=== PATIENT | male | born 1940 | race Two or more races ===

== ENCOUNTER 2021-06-11 13:46 | Inpatient (IN) | payer MEDICARE ==
[~2021-06-11] VITALS: Ht 167.6 cm; Wt 98.5 kg
[~2021-06-11 13:46] MED LIST: ASPI81TA87 PO; ATOR20TA65 PO; LEVE500T20 PO
[2021-06-11] MEDS ORDERED: IOHEXOL 350 MG/ML 150 ML VIAL ONE (13:58)
[2021-06-11] MEDS ORDERED: ALBU8HFA IH (14:22)
[2021-06-11] MEDS ORDERED: SPIR-37 PO (14:22)
[2021-06-11] MEDS ORDERED: DULO30CA89 PO (14:22)
[2021-06-11] MEDS ORDERED: CARV3.1231 PO (14:22)
[2021-06-11] MEDS ORDERED: LISI-892 PO (14:22)
[2021-06-11] MEDS ORDERED: BUME1TAB34 PO (14:22)
[2021-06-11] MEDS ORDERED: CLOP75TA60 PO (14:22)
[2021-06-11] MEDS ORDERED: LEVO25TA9 PO (14:22)
[2021-06-11] MEDS ORDERED: EMPA10TA PO (14:22)
[2021-06-11] MEDS ORDERED: TAMS-13 PO (14:22)
[2021-06-11 14:30] LABS: BASOPHILS % (AUTO) 0.2 % (0.0-2.0); EOSINOPHILS % (AUTO) 1.1 % (1.0-6.0); HEMOGLOBIN 12.3 g/dL (13.5-17.5); LYMPHOCYTES # (AUTO) 1.2 K/uL (1.0-4.8); LYMPHOCYTES % (AUTO) 25.8 % (22.0-44.0); MEAN CORPUSCULAR HGB CONC 35.3 G/dL (31.0-37.0); MEAN CORPUSCULAR VOLUME 91 fL (80-100); MONOCYTES # (AUTO) 0.6 K/uL (0.1-1.0); MONOCYTES % (AUTO) 11.8 % (2.0-9.0); NEUTROPHILS # (AUTO) 2.9 K/uL (1.8-7.7); NEUTROPHILS % (AUTO) 61.1 % (40.0-70.0); PLATELET COUNT (AUTO) 159 K/uL (150-450); RED BLOOD CELL COUNT(AUTO) 3.86 MIL/uL (4.50-5.90); RED CELL DISTRIBUTION WIDTH 13.7 % (11.5-14.5)
[2021-06-11 14:35] LABS: CALCIUM, TOTAL 9.1 mg/dL (8.8-10.5); CREATININE 1.42 mg/dL (0.60-1.30); POTASSIUM 4.3 mmol/L (3.5-5.1)
[2021-06-11 14:40] LABS: PROTHROMBIN TIME 11.1 SEC (9.4-11.6)
[2021-06-11 14:41] LABS: ALBUMIN 3.6 g/dL (3.4-5.0); BILIRUBIN,TOTAL 0.9 mg/dL (0.1-1.0)
[2021-06-11] MEDS ORDERED: DEXTROSE 50%-WATER 25 GM/50 ML SYRINGE IVP PRN (14:45)
[2021-06-11] MEDS ORDERED: INSULIN LISPRO 100 UNITS/ML SQ PRN (14:45)
[2021-06-11] MEDS ORDERED: ACETAMINOPHEN 325 MG TABLET PO PRN ×2 (14:45→15:45)
[2021-06-11] MEDS: ATORVASTATIN CALCIUM 40 MG TABLET PO SCH (15:07)
[2021-06-11] MEDS: HEPARIN SODIUM,PORCINE 5,000 UNITS/ML VIAL SQ SCH (15:08)
[2021-06-11] MEDS: ASPIRIN 81 MG CHEWABLE TABLET PO SCH (15:08)
[2021-06-11 15:17] LABS: THYROID STIMULATING HORMONE 1.99 uIU/mL (0.36-3.74)
[2021-06-11] MEDS ORDERED: ASPIRIN 81 MG CHEWABLE TABLET PO ONE (15:30)
[2021-06-11] MEDS ORDERED: ONDANSETRON HCL 4 MG/2 ML VIAL IVP PRN (15:45)
[2021-06-11] MEDS ORDERED: 0.9% SODIUM CHLORIDE 10 ML SYRINGE IVP PRN (15:45)
[2021-06-11 16:01] LABS: COVID AG,FIA SOURCE NASAL SWAB
[2021-06-11 18:26] VITALS: BP 124/59
[2021-06-11] MEDS: DOCUSATE SODIUM 100 MG CAPSULE PO SCH (21:30)
[2021-06-12] VITALS (7 sets, daily range): BP systolic 96–129; BP diastolic 52–63
[2021-06-12] MEDS: HEPARIN SODIUM,PORCINE 5,000 UNITS/ML VIAL SQ SCH ×3 (00:50→16:56)
[2021-06-12 05:21] LABS: GLUCOMETER DEV NAME(LOC) 5S.2B; GLUCOSE,POINT OF CARE 115 MG/DL (70-110)
[2021-06-12] MEDS: DOCUSATE SODIUM 100 MG CAPSULE PO SCH ×2 (09:25→20:32)
[2021-06-12] MEDS: CLOPIDOGREL BISULFATE 75 MG TABLET PO SCH (09:26)
[2021-06-12] MEDS: ASPIRIN 81 MG CHEWABLE TABLET PO SCH (09:26)
[2021-06-12] MEDS: ATORVASTATIN CALCIUM 40 MG TABLET PO SCH (09:26)
[2021-06-12] MEDS: FAMOTIDINE 20 MG TABLET PO SCH (09:26)
[2021-06-12 17:21] LABS: GLUCOMETER DEV NAME(LOC) 5S.2B; GLUCOSE,POINT OF CARE 97 MG/DL (70-110)
[2021-06-12 17:21] LABS: GLUCOMETER DEV NAME(LOC) 5S.2B; GLUCOSE,POINT OF CARE 130 MG/DL (70-110)
[2021-06-12 17:21] LABS: GLUCOMETER DEV NAME(LOC) 5S.2B; GLUCOSE,POINT OF CARE 97 MG/DL (70-110)
[2021-06-13] MEDS: HEPARIN SODIUM,PORCINE 5,000 UNITS/ML VIAL SQ SCH ×2 (00:04→08:23)
[2021-06-13 00:11] VITALS: BP 130/51
[2021-06-13 04:02] VITALS: BP 109/45
[2021-06-13 06:21] LABS: GLUCOMETER DEV NAME(LOC) 5N.3; GLUCOSE,POINT OF CARE 131 MG/DL (70-110)
[2021-06-13 06:21] LABS: GLUCOMETER DEV NAME(LOC) 5N.3; GLUCOSE,POINT OF CARE 94 MG/DL (70-110)
[2021-06-13 07:41] LABS: CALCIUM, TOTAL 8.8 mg/dL (8.8-10.5); CREATININE 1.3 mg/dL (0.60-1.30); POTASSIUM 3.9 mmol/L (3.5-5.1)
[2021-06-13 08:00] VITALS: BP 121/61
[2021-06-13] MEDS: DOCUSATE SODIUM 100 MG CAPSULE PO SCH (08:24)
[2021-06-13] MEDS: ASPIRIN 81 MG CHEWABLE TABLET PO SCH (08:24)
[2021-06-13] MEDS: ATORVASTATIN CALCIUM 40 MG TABLET PO SCH (08:24)
[2021-06-13] MEDS: FAMOTIDINE 20 MG TABLET PO SCH (08:24)
[2021-06-13] MEDS: CLOPIDOGREL BISULFATE 75 MG TABLET PO SCH (08:24)
[2021-06-13 09:32] LABS: GLUCOMETER DEV NAME(LOC) 5S.1B; GLUCOSE,POINT OF CARE 158 MG/DL (70-110)
== END 2021-06-13 11:55 | disposition home or self-care (01) | DRG 69 ==
LOC: EMS 13:47 → 5S 18:11
PROVIDERS: ADMIT Internal Medicine; ATTEND Internal Medicine
DX: G45.9 Transient cerebral ischemic attack, unspecified (principal); E87.1 Hypo-osmolality and hyponatremia; I50.22 Chronic systolic (congestive) heart failure; E11.9 Type 2 diabetes mellitus without complications; E66.01 Morbid (severe) obesity due to excess calories; E78.00 Pure hypercholesterolemia, unspecified; F01.50 Vascular dementia, unspecified severity, without behavioral disturbance, psychotic disturbance, mood disturbance, and anxiety; G40.909 Epilepsy, unspecified, not intractable, without status epilepticus; Z20.822 Contact with and (suspected) exposure to COVID-19; N28.9 Disorder of kidney and ureter, unspecified; I11.0 Hypertensive heart disease with heart failure; I25.10 Atherosclerotic heart disease of native coronary artery without angina pectoris; Z87.891 Personal history of nicotine dependence; Z86.73 Personal history of transient ischemic attack (TIA), and cerebral infarction without residual deficits; Z95.5 Presence of coronary angioplasty implant and graft; Z68.35 Body mass index [BMI] 35.0-35.9, adult; Z95.810 Presence of automatic (implantable) cardiac defibrillator
CPT/HCPCS: 70496; 70498; 71045; 80048; 80053; 82962; 84443; 84484; 85025; 85610; 85730; 92610; 93005; 97163; 97165; 97535; 99291; J1644; Q9967; 36415-L1; 36415-TC; 70450; 70450-TC

== ENCOUNTER 2023-05-31 15:53 | Emergency (ER) | payer MEDICARE ==
[~2023-05-31] VITALS: Ht 185.4 cm; Wt 110.0 kg
[~2023-05-31 15:53] MED LIST changes: +ALBU18HF12 IH; +BUME1TAB34 PO; +CARV3.1231 PO; +CLOP75TA60 PO; +DULO-114 PO; +EMPA10TA3 PO; +LEVO25TA9 PO; +LISI-892 PO; +SPIR-37 PO; +TAMS0.4C94 PO
[2023-05-31 16:15] VITALS: TEMP 97.8
[2023-05-31 17:49] LABS: APPEARANCE,URINE CLEAR (CLEAR); BILIRUBIN,URINE NEGATIVE (NEGATIVE); COLOR,URINE COLORLESS (YELLOW); GLUCOSE, URINE (UA) NEGATIVE (NEGATIVE); KETONES,URINE NEGATIVE (NEGATIVE); LEUKOCYTE ESTERASE ,URINE TRACE (NEGATIVE); NITRATE,URINE NEGATIVE (NEGATIVE); OCCULT BLOOD,URINE NEGATIVE (NEGATIVE); PH,URINE 5.5 (5.0-8.0); PROTEIN,URINE NEGATIVE (NEGATIVE); SPECIFIC GRAVITIY, URINE 1.007 (1.003-1.030); UROBILINOGEN,URINE <=1.0 mg/dL (<=1.0)
[2023-05-31 18:08] LABS: BACTERIA,URINE Rare /HPF (None Seen); RBC,URINE 0-2 /HPF (0-2); SQUAMOUS EPITHELIAL CELL,UR Rare /LPF (None Seen)
[2023-05-31 18:24] LABS: BASOPHILS % (AUTO) 0.3 % (0.0-2.0); EOSINOPHILS % (AUTO) 0.4 % (1.0-6.0); HEMATOCRIT 30.2 % (41-53); HEMOGLOBIN 10.3 g/dL (13.5-17.5); LYMPHOCYTES # (AUTO) 0.9 K/uL (1.0-4.8); LYMPHOCYTES % (AUTO) 15.1 % (22.0-44.0); MEAN CORPUSCULAR HEMOGLOBIN 32.9 pg (26.0-34.0); MEAN CORPUSCULAR HGB CONC 34.2 G/dL (31.0-37.0); MEAN CORPUSCULAR VOLUME 96 fL (80-100); MONOCYTES # (AUTO) 0.6 K/uL (0.1-1.0); MONOCYTES % (AUTO) 9.4 % (2.0-9.0); NEUTROPHILS # (AUTO) 4.7 K/uL (1.8-7.7); NEUTROPHILS % (AUTO) 74.8 % (40.0-70.0); PLATELET COUNT (AUTO) 119 K/uL (150-450); RED BLOOD CELL COUNT(AUTO) 3.14 MIL/uL (4.50-5.90); RED CELL DISTRIBUTION WIDTH 14.1 % (11.5-14.5); WHITE BLOOD COUNT (AUTO) 6.3 K/uL (4.5-11.0)
[2023-05-31 18:38] LABS: CREATININE 1.38 mg/dL (0.60-1.30); POTASSIUM 4.3 mmol/L (3.5-5.1)
[2023-05-31 18:45] LABS: ALBUMIN 3.2 g/dL (3.4-5.0); BILIRUBIN,TOTAL 0.3 mg/dL (0.1-1.0); TOTAL PROTEIN, SERUM 6.7 g/dL (6.4-8.2); TROPONIN I-HIGH SENSITIVITY 15 ng/L (<76)
[2023-05-31 19:30] VITALS: BP 120/58; PULSE 58; RESP 22
== END 2023-05-31 20:58 | disposition home or self-care (01) ==
LOC: EMS 15:54
DX: R10.11 Right upper quadrant pain (principal); E11.9 Type 2 diabetes mellitus without complications; E78.00 Pure hypercholesterolemia, unspecified; I10 Essential (primary) hypertension; Z87.891 Personal history of nicotine dependence; Z98.890 Other specified postprocedural states
CPT/HCPCS: 76705; 80053; 81001; 83690; 84484; 85025; 87086; 87186; 93005; 99284